=== PATIENT | male | born 1950 | race Caucasian/White ===

== ENCOUNTER → 2017-02-26 | Outpatient (CLI) | payer OTHER ==
--- NOTE | 2017-02-26 11:50 | DIAGNOSTIC IMAGING REPORT ---
HEAD CT NONCONTRAST CT DOSE: 614.27 mGy.cm HISTORY: R29.6 Multiple falls [id number] TECHNIQUE: Multiaxial CT images of the head were performed without the use of intravenous contrast. Automated exposure control was utilized for this study. A dose lowering technique was utilized adhering to the principles of ALARA. Comparison: None. Findings: The paranasal sinuses and mastoid air cells are clear. The calvarium and skull base are intact. The ventricles and sulci are within normal limits. There is no mass, hematoma, midline shift, or acute infarct. Impression: No acute intracranial abnormality. Electronically signed by: Prince Golden M.D. 02/26/2017 11:49 AM Dictated Date/Time: 02/26/2017 11:39 AM
== END | disposition home or self-care (01) ==
LOC: C.CTS 11:28
PROVIDERS: ATTEND Psychiatry & Neurology Neurology
DX: R29.6 Repeated falls (principal)

== ENCOUNTER 2017-03-19 05:27 | Inpatient (IN) | payer OTHER ==
[2017-03-04 14:42] VITALS: BMI 25.0
--- NOTE | 2017-03-04 15:13 | PAT Medication Instructions ---
Service Date Mar 04, 2017. Current Home Medication List Aspirin (Aspirin Ec), 81 MG PO QAM Cholecalciferol (Vitamin D3), 5,000 TAB PO QAM Glucosamine Sulfate (Glucosamine), 1,000 MG PO Memantine (Namenda), 28 MG PO QAM Multivitamin (Multivitamin), 1 TAB PO QPM Naproxen (Aleve), 220 MG PO PRN Ocuvite Preservision (Ocuvite Preservision), 1 TAB PO BID [Vitamin B12], 1 TAB PO QAM Medication Instructions For Your Scheduled Surgery - Check with surgeon for instructions: Naproxen (Aleve), 220 MG PO PRN Aspirin (Aspirin Ec), 81 MG PO QAM - Hold the following medications 2 weeks prior to surgery: Glucosamine Sulfate (Glucosamine), 1,000 MG PO - Hold the following medications the morning of surgery: Cholecalciferol (Vitamin D3), 5,000 TAB PO QAM Multivitamin (Multivitamin), 1 TAB PO QPM Ocuvite Preservision (Ocuvite Preservision), 1 TAB PO BID [Vitamin B12], 1 TAB PO QAM - Take the following medications the morning of surgery with a sip of water: Memantine (Namenda), 28 MG PO QAM If you have any questions please call us at [phone] or [phone] or [phone]
[2017-03-04 15:58] LABS: BASO % 0.3 %; BASO ABS # 0.02 K/uL (0-0.2); COMPLETE YES; EOS % 2.4 %; HEMATOCRIT 41.9 % (42-52); IG% 0.3 %; LYMPH % 23.9 %; LYMPH ABS # 1.62 K/uL (1.2-3.4); MEAN CELL VOLUME 88.8 fL (80-100); MEAN CORPUSCULAR HEMOGLOBIN 31.1 pg (25-34); MEAN CORPUSCULAR HGB CONC 35.1 g/dl (32-36); MEAN PLATELET VOLUME 8.7 fL (7.4-10.4); MONO % 8.7 %; NEUT % 64.4 %; PLATELET COUNT 281 K/uL (130-400); RED BLOOD COUNT 4.72 M/uL (4.7-6.1); WHITE BLOOD COUNT 6.78 K/uL (4.8-10.8)
--- NOTE | 2017-03-04 16:06 | DIAGNOSTIC IMAGING REPORT ---
CHEST 2 VIEWS ROUTINE CLINICAL HISTORY: Preoperative chest COMPARISON STUDY: No previous studies for comparison. FINDINGS: The cardiac and mediastinal contours are normal. There is no evidence of focal pulmonary consolidation. There is no evidence of failure. No pleural effusions are visualized.[ IMPRESSION: No active disease in the chest. Electronically signed by: Franck Porras M.D. 03/04/2017 4:05 PM Dictated Date/Time: 03/04/2017 4:04 PM
[2017-03-04 16:17] LABS: MANUAL MICROSCOPIC REQUIRED? NO; URINE APPEARANCE CLEAR (CLEAR); URINE BILIRUBIN NEG (NEG); URINE COLOR YELLOW; URINE NITRITE NEG (NEG); URINE PH 6.5 (4.5-7.5); UROBILINOGEN NEG (NEG)
[2017-03-04 16:18] LABS: INR 1.1 (0.9-1.1); PARTIAL THROMBOPLASTIN RATIO 1.2; PROTHROMBIN TIME (PATIENT) 11.6 SECONDS (9.0-12.0)
[2017-03-04 16:35] LABS: REVIEW REQ? NO
[2017-03-04 16:36] LABS: CREATININE 0.94 mg/dl (0.60-1.40)
[2017-03-04 16:37] LABS: BUN/CREATININE RATIO 14.8 (10-20); POTASSIUM 3.9 mmol/L (3.5-5.1)
[2017-03-05 05:46] LABS: ESTIMATED AVERAGE GLUCOSE 105 mg/dl; HA1C FLAG Normal (Normal)
--- NOTE | 2017-03-05 16:31 | HISTORY & PHYSICAL EXAMINATION ---
DATE OF ADMISSION: 03/19/2017 CHIEF COMPLAINT: Right knee pain. HISTORY OF PRESENT ILLNESS: Mr. Anderson is a 66-year-old male with a 1-year history of right knee pain. He rates his pain at 6/10. He has pain with his daily activities. He has limited standing and walking tolerance. Pain is worse with weightbearing. The patient has had injections, NSAIDs, and knee brace in the past without relief. He also has previous history of right knee meniscectomy and physical therapy. He has failed conservative treatment and is scheduled for right knee replacement. PAST MEDICAL HISTORY: History of prostate cancer and dementia. He denies heart disease, diabetes or DVT. PAST SURGICAL HISTORY: Right knee meniscectomy and prostatectomy. SOCIAL HISTORY: The patient drinks 6 drinks per week. He denies tobacco use. He lives in a 2-story home. He is and retired. FAMILY HISTORY: Negative for DVT. MEDICATIONS: Ocuvite 1 tablet daily, glucosamine 500 mg, vitamin D3 at 5000 units, vitamin B12 at 1000 mcg, Namenda 10 mg 2 times daily, Centrum Silver 400 mcg, aspirin 81 mg daily, and Aleve p.r.n. ALLERGIES: None. REVIEW OF SYSTEMS: See HPI. Ten other systems reviewed, all negative. PHYSICAL EXAMINATION: VITAL SIGNS: Height 5 feet 10 inches. Weight 165 pounds. GENERAL: This is a well-developed and well-nourished male, who is alert and oriented x3. Mood and affect are appropriate. HEENT: Normocephalic and atraumatic. Mucous membranes are moist and intact. NECK: Supple without lymphadenopathy. HEART: Regular rate and rhythm without murmurs, rubs or gallops. LUNGS: Clear to auscultation without wheezes or rhonchi. ABDOMEN: Soft and nontender. Bowel sounds are equal and active. EXTREMITIES: No ecchymosis, redness or warmth. He has a varus deformity. He has scar medially. Range of motion is from 0-120 degrees with +1 laxity. He has mild effusion. He has no distal edema. He is neurovascularly intact with +5/5 strength. X-RAY EXAMINATION: AP and lateral views show joint space narrowing and osteophyte formation. IMPRESSION: Degenerative joint disease, right knee. PLAN: The patient will be admitted for a right total knee arthroplasty. We will plan on aspirin 325 mg b.i.d. for DVT prophylaxis. He will have [facility] for home physical therapy upon discharge.
[2017-03-19] VITALS (9 sets, daily range): BP systolic 92–149; BP diastolic 52–91; PULSE 70–84; TEMP 36.5–36.8; O2SAT 94–98; Ht 177.8 cm; Wt 25.5 kg
[~2017-03-19] VITALS: Ht 177.8 cm; Wt 25.5 kg
[~2017-03-19 05:27] MED LIST: ASPI81TA28 PO; CHOL1000 PO; GLUC10007 PO; MULT-190 PO; MULT-506 PO; NAPR1TAB9 PO; NMN10 PO; VITAMIN B12 PO
[2017-03-19] MEDS ORDERED: ACETAMINOPHEN 500 MG TAB PO SCH (06:00)
[2017-03-19] MEDS ORDERED: LACTATED RINGER'S 1000ML 1,000 ML IV SCH (06:00)
[2017-03-19] MEDS ORDERED: CeleBREX 200 MG CAP PO SCH (06:00)
[2017-03-19] MEDS ORDERED: ROPIVACAINE 5MG/ML 30 ML 150 MG, BUPIVACAINE 0.5% MPF INJ 30 ML, EpINEphrine HCL INJ 0.... INFIL SCH ×8 (06:00)
[2017-03-19] MEDS ORDERED: FAMOTIDINE 20 MG TAB PO SCH (06:00)
[2017-03-19] MEDS ORDERED: DEXAMETHASONE 4 MG TAB PO SCH (06:00)
[2017-03-19] MEDS ORDERED: CEFAZOLIN 2000MG IV PUSH 10 ML IV SCH (06:00)
[2017-03-19] MEDS ORDERED: GABAPENTIN 300 MG CAP PO SCH (06:00)
[2017-03-19] MEDS ORDERED: LACTATED RINGER'S 1000ML IV SCH (06:00)
[2017-03-19] MEDS ORDERED: LACTATED RINGER'S 1000ML 500 ML IV ONE (06:00)
[2017-03-19] MEDS ORDERED: METOCLOPRAMIDE HCL 10 MG TAB PO SCH (06:00)
[2017-03-19] MEDS ORDERED: BUPIVACAINE 0.25% 30 ML VIAL ONE (06:35)
[2017-03-19] MEDS ORDERED: DEXAMETHASONE SOD INJ 4 MG/ML VIAL ONE (06:35)
[2017-03-19] MEDS ORDERED: EpINEphrine INJ 1MG/ML AMP 1 MG/ML AMP ONE (06:35)
[2017-03-19] MEDS ORDERED: BUPIVACAINE 0.5 % 5 MG/1 ML PF 10ML VIAL ONE (06:35)
[2017-03-19] MEDS: TRANEXAMIC ACID INJ 1,000 MG in SYRINGE 0 ML IV SCH ×2 (06:45→13:21)
[2017-03-19] MEDS ORDERED: FENTANYL CITRATE INJ 50 MCG/1 ML 2 ML VIAL ONE (06:51)
[2017-03-19] MEDS ORDERED: MIDAZOLAM HCL 1 MG/ML 2ML VIAL ONE (06:51)
--- NOTE | 2017-03-19 06:52 | History & Physical Bridge Note ---
H&P Re-Evaluation Bridge Note: I have examined the patient, reviewed the History & Physical and in the interval since the performance of the History & Physical I have noted the following changes of clinical significance: No changes noted
[2017-03-19] MEDS ORDERED: ORTHO JOINT ANESTHETIC ONE (06:53)
[2017-03-19] MEDS ORDERED: POVIDONE-IODINE OP SOLN 30 ML BTL ONE (06:54)
[2017-03-19] MEDS ORDERED: BACITRACIN 50000 UNIT VIAL ONE (06:54)
[2017-03-19] MEDS ORDERED: ATROPINE SULFATE 0.1 MG/ML 5ML SYR IV PRN (08:00)
[2017-03-19] MEDS ORDERED: FENTANYL CITRATE INJ 50 MCG/1 ML 2 ML VIAL IV PRN (08:00)
[2017-03-19] MEDS ORDERED: EpHEDrine SULFATE INJ 50 MG/ML AMP IV PRN (08:00)
[2017-03-19] MEDS ORDERED: ONDANSETRON INJ 2 MG/ML 2 ML VIAL IV PRN ×2 (08:00→10:00)
[2017-03-19] MEDS ORDERED: PROPOFOL IV EMULSION 10 MG/ML 20 ML VIAL IV ONE (09:11)
[2017-03-19] MEDS ORDERED: GLYCOPYRROLATE INJ 0.2 MG/ML VIAL ONE (09:11)
[2017-03-19] MEDS ORDERED: MoRPHine SULFATE 4 MG/ML 1 ML CARP\\VIAL IV PRN (10:00)
[2017-03-19] MEDS ORDERED: OXYCODONE HCL IR 5 MG TAB (IMMEDIATE RELEASE) PO PRN (10:00)
--- NOTE | 2017-03-19 10:04 | [facility] Operative Report ---
Operative Report Operative Date Mar 19, 2017. Pre-Operative Diagnosis Degenerative joint disease, right knee Post-Operative Diagnosis Same as preop Procedure(s) Performed Right total knee arthroplasty Surgeon Dr. Harper Sanitation Engineer Surgeon(s) Pepe Dallas PA-C Estimated Blood Loss 25 cc Findings see dictated op note Specimens A: right knee bone and tissue Drains none Anesthesia spinal Complication(s) None Disposition Recovery Room / PACU Indications A 66-year-old male presents with long history of right knee severe tricompartmental DJD which is failed outpatient conservative treatments including NSAIDs, bracing, cortisone injections home walking/exercise program. His symptoms have progressed to the point where it has been difficult for him to perform normal activities of daily living. I have indicated the patient for a right total knee arthroplasty, the risks and benefits and complications of the procedure include but are not limited to infection bleeding damage to bone nerves vessels surrounding soft tissue, blood clots loss of function leg length discrepancy dislocation failure of the components need for additional surgery and . The patient wished to proceed with surgery at this time and informed consent was obtained. Appropriate clearances were obtained. Description of Procedure Following induction of spinal anesthesia, a tourniquet was applied to the proximal aspect of the thigh and the patient's right leg was prepped and draped in the usual sterile manner. A timeout was performed and site rabia verified. Limb was exsanguinated with an esmarch bandage and tourniquet was inflated to 300 mmHg. A longitudinal midline incision was made over the anterior knee. Subcutaneous tissue was sharply dissected down to fascia. Electrocautery was used for hemostasis. Next a parapatellar arthrotomy was performed. Patella was everted and the knee was flexed. A lambert retractor was used to expose the synovium above on the anterior aspect of the femur and removed down to bone. Next, the anterior fat pad was removed to aid in visualization. The medial face of the tibia was cleared of soft tissue first with a bovie and a asmayoa elevator. This tissue was retracted posteriorly using a blunt hohmann. Next the extramedullary tibial cutting guide was placed to the anterior aspect of the tibia. The tibial resection level was set taking 2mm from the defective tibial condyle. The medial and lateral collateral ligament were protected with that homans. The tibia guide was removed and proximal tibial bone fragment removed utilizing straight osteotome, electrocautery and higinio. Next, the distal femur intramedullary canal was accessed utilizing the step drill. The intramedullary distal femur cutting guide was placed into the canal and pinned into place. The distal femur was cut on the +2 setting. Next the cutting guide was removed and the femur was sized. Care was taken to ensure appropriate participant administrator all rotation and 3 degree holes were drilled. A size 10 4-in-1 cutting block was placed on the distal end of the femur and secured into place with two short headed screws. To bent homans were placed to protect the medial and lateral collateral ligaments. The oscillating saw was used to cut anterior, posterior, anterior chamfer and posterior chamfer. The four and one cutting block was removed and bone fragments excised. Laminar phlebotomy lab assistant was placed laterally and the ACL and PCL were removed followed by the medial meniscus and posterior medial osteophytes. Aquamantys was utilized for any posterior medial bleeders and Orthomix injected into the posterior medial capsule. A laminar phlebotomy lab assistant was then placed in the medial compartment and the lateral meniscus and posterior osteophytes were removed. Aquamantys was utilized for any posterior lateral bleeders and Orthomix injected into the posterior lateral capsule. Next, drop quinn and spacer block were placed with the leg in flexion and extension to assess alignment and flexion/extension gaps. Next the proximal tibia was assessed and two bent Homans were placed medial and lateral to aid in visualization. The appropriate tibia size and rotation was selected and a size G tibial plate was pinned into place with appropriate rotation. Preparation of the tibia was completed utilizing the matching tibial drill and broach. I then turned my attention back to the distal femur in a trial femoral component was impacted into place. Appropriate femoral width was assessed and selected. Next the femur PS box cut guide was placed and cut made with the reciprocal saw and the PS box provisional placed. A trial size 10 mm tibia articular tray was placed and varus-valgus balance assessed in 0 degrees of extension and 30, 60 and 90 degrees of flexion. A final tibial articular surface size 10 mm was chosen. Assess was gained to the patella and caliper utilized to measure width. The patella reamer was utilized and remaining bone removed with oscillating saw. A size 38 mm patella button was selected and the patella pegs drilled. Trial patella button was placed and tracking was assessed. The knee was found to be well balanced, well aligned with excellent patella tracking. The trials were removed and final components were obtained and assembled. The knee was irrigated copiously with sterile saline solution mixed with bacitracin. Access to the proximal tibia was once again obtained utilizing to the belkys and the proximal tibia and distal femur were dried with lap sponges. The final components were cemented into place and all excess cement was removed. A trial tibial articular surface was placed while cemented hardened. Knee stability was once again assessed and the final component inserted. The knee was injected with the remaining Orthomix solution and irrigated once more with sterile saline solution mixed with bacitracin. The capsulotomy was closed with #1 Vicryl followed by subcutaneous closure with 2-0 Vicryl suture and a 3- 0 V-lock suture. Skin closure was performed using Prineo dressing followed by Sim, 4 x 4s and mathieu wrap. The patient tolerated the procedure well and was taken to the PACU in stable condition. Due to the complex nature of the procedure, the entire surgery was performed with the operational assistance of Antonia Dallas PA-C. The integration assistant, under direct supervision, was involved in the actual performance of all aspects of the surgical procedure including hemostasis, tissue retraction and incision, instrument management, patient positioning, and wound closure. I attest to the content of the Intraoperative Record and any orders documented therein. Any exceptions are noted below. I attest to the content of the Intraoperative Record and any orders documented therein. Any exceptions are noted below.
--- NOTE | 2017-03-19 10:30 | DIAGNOSTIC IMAGING REPORT ---
TWO VIEWS RIGHT KNEE CLINICAL HISTORY: Postoperative examination. FINDINGS: AP and crosstable lateral portable views of the right knee are obtained. A right knee arthroplasty is in near anatomic alignment. There has been undersurface remodeling of the patella. No acute fracture is seen. There are expected postoperative changes around the knee including a surgical drain, soft tissue edema, and subcutaneous gas. IMPRESSION: Expected postoperative changes status post right knee arthroplasty. No acute fracture is seen. Electronically signed by: Peter Velazquez M.D. 03/19/2017 10:29 AM Dictated Date/Time: 03/19/2017 10:28 AM
--- NOTE | 2017-03-19 10:55 | Anesthesiology Progress Note ---
Anesthesia Post Op Note Date & Time Mar 19, 2017 at 10:54 Vital Signs Pain Intensity: 0 Vital Signs Past 12 Hours Date Time Temp Pulse Resp B/P (MAP) Pulse Ox O2 Delivery O2 Flow Rate FiO2 03/19/17 10:50 37 71 16 110/77 97 Nasal Cannula 2 03/19/17 10:40 73 16 115/68 98 Nasal Cannula 2 03/19/17 10:30 74 16 115/70 97 Nasal Cannula 2 03/19/17 10:20 80 19 114/69 97 Nasal Cannula 2 03/19/17 10:10 78 16 103/60 95 Oxymask 10 03/19/17 10:00 36.8 89 16 107/59 96 Oxymask 10 03/19/17 05:49 36.6 84 18 149/91 98 Room Air Notes Mental Status: alert / awake / arousable, participated in evaluation Pt Amnestic to Procedure: Yes Nausea / Vomiting: adequately controlled Pain: adequately controlled Airway Patency, RR, SpO2: stable & adequate BP & HR: stable & adequate Hydration State: stable & adequate Anesthetic Complications: no major complications apparent
[2017-03-19] MEDS: ACETAMINOPHEN 500 MG TAB PO SCH ×2 (14:12→20:58)
[2017-03-19] MEDS: SODIUM CHLORIDE 0.9% 1000ML 1,000 ML IV SCH ×2 (14:12→22:37)
[2017-03-19] MEDS ORDERED: INFLUENZA ADMINISTRATION CHARGE ONE (15:15)
[2017-03-19] MEDS ORDERED: INFLUENZA VIRUS QUAD VACCINE 0.5 ML SYR IM. ONE (15:15)
[2017-03-19] MEDS: CEFAZOLIN IV 2,000 MG in SYRINGE 0 ML IV SCH (15:41)
[2017-03-19] MEDS ORDERED: CEFAZOLIN IV 2,000 MG in DEXTROSE 5% 50ML 50 ML IV SCH (16:00)
--- NOTE | 2017-03-19 16:41 | Orthopedic Progress Note ---
Orthopedic Progress Note Date of Service Mar 19, 2017. Subjective Additional Notes: Post op progress note Patient seen at bedside, s/p Right TKA, comfortable, sensation returning to b/l lower extremities, pain well controlled, no acute issues. Does complain of numbness to right hand, 1-3 digits. Denies N/V/CP/SOB Objective NAD, AOx3 RUE NVSI +M/R/U/AIN/PIN motor, sensory intact to light touch grossly, with the exception of the 1,2,3 digits to sensory. Compartments soft NT, 5/5 gripe strength. CR< 2 seconds, Full painless ROM shoulder, elbow, wrist, fingers RLE NVSI +EHL/FHL/TA/GS SILT grossly, CR< 2 seconds, +2 DP pulse, dressing cdi, compartments soft NT, SCDs in place Date Time Temp Pulse Resp B/P (MAP) Pulse Ox O2 Delivery O2 Flow Rate FiO2 03/19/17 15:08 36.8 73 16 92/52 (65) 96 Nasal Cannula 2.0 03/19/17 14:10 78 16 97/58 (71) 98 03/19/17 13:10 81 17 109/66 (80) 98 03/19/17 12:10 73 16 104/66 (79) 98 Nasal Cannula 2.0 03/19/17 11:40 72 16 105/61 (76) 98 Nasal Cannula 2.0 03/19/17 11:10 94 Nasal Cannula 2.0 03/19/17 11:10 36.8 77 16 109/65 (80) 94 Nasal Cannula 2.0 03/19/17 11:10 94 Nasal Cannula 2.0 03/19/17 10:50 37 71 16 110/77 97 Nasal Cannula 2 03/19/17 10:40 73 16 115/68 98 Nasal Cannula 2 03/19/17 10:30 74 16 115/70 97 Nasal Cannula 2 03/19/17 10:20 80 19 114/69 97 Nasal Cannula 2 03/19/17 10:10 78 16 103/60 95 Oxymask 10 03/19/17 10:00 36.8 89 16 107/59 96 Oxymask 10 03/19/17 05:49 36.6 84 18 149/91 98 Room Air Assessment & Plan Assessment: s/p R TKA RUE median nerve paraesthesia Plan: -Ancef x 24 -ASA/SCDs for DVT PPX -Pain controlled -IV fluids x 24 -PO XR - well aligned, well fixed TKA, no fracture/dislocation. -RUE median nerve paraesthesia likely positional, continue to monitor, NV checks. -WBAT RLE -PT/OT -Am labs
[2017-03-19] MEDS: ASPIRIN 325 MG ECTAB PO SCH (20:57)
[2017-03-19] MEDS: DOCUSATE SODIUM 100 MG CAP PO SCH (20:58)
[2017-03-19] MEDS ORDERED: SENNA 8.6 MG TAB PO SCH (21:00)
[2017-03-19] MEDS ORDERED: MULTIVITAMIN TAB PO SCH (21:00)
[2017-03-20] MEDS: CEFAZOLIN IV 2,000 MG in SYRINGE 0 ML IV SCH (00:31)
[2017-03-20 03:09] VITALS: BP 102/58; PULSE 70; TEMP 36.7; O2SAT 97
[2017-03-20] MEDS: ACETAMINOPHEN 500 MG TAB PO SCH ×2 (06:08→14:14)
[2017-03-20 07:20] LABS: HEMATOCRIT 36.7 % (42-52); MEAN CELL VOLUME 90.2 fL (80-100); MEAN CORPUSCULAR HEMOGLOBIN 30.7 pg (25-34); MEAN CORPUSCULAR HGB CONC 34.1 g/dl (32-36); PLATELET COUNT 306 K/uL (130-400); RED BLOOD COUNT 4.07 M/uL (4.7-6.1); WHITE BLOOD COUNT 19.47 K/uL (4.8-10.8)
[2017-03-20 07:51] VITALS: BP 122/70; PULSE 64; TEMP 36.4; O2SAT 96
[2017-03-20 07:52] LABS: BUN/CREATININE RATIO 21.3 (10-20); CALCIUM 8.2 mg/dl (8.5-10.1); CREATININE 1.12 mg/dl (0.60-1.40); POTASSIUM 3.7 mmol/L (3.5-5.1)
--- NOTE | 2017-03-20 08:04 | Orthopedic Progress Note ---
Orthopedic Progress Note Date of Service Mar 20, 2017. Subjective Post OP Day: 1 Reports: feeling well, Denies: chest pain, SOB, nausea / vomiting, light headedness, calf pain Additional Notes: Having some mild pain in the back of the knee. No other complaints. Objective calves soft nontender, N/V intact, dressing C/D/I, A&O x3, toes mobile Tingling in fingers resolving Date Time Temp Pulse Resp B/P (MAP) Pulse Ox O2 Delivery O2 Flow Rate FiO2 03/20/17 07:51 36.4 64 18 122/70 (87) 96 Room Air 03/20/17 03:09 36.7 70 17 102/58 (73) 97 Room Air 03/20/17 00:30 Room Air 03/19/17 22:54 36.5 70 16 102/53 (69) 94 Room Air 03/19/17 19:26 36.5 77 18 100/60 (73) 94 Room Air 03/19/17 15:25 Room Air 03/19/17 15:08 36.8 73 16 92/52 (65) 96 Nasal Cannula 2.0 03/19/17 14:10 78 16 97/58 (71) 98 03/19/17 13:10 81 17 109/66 (80) 98 03/19/17 12:10 73 16 104/66 (79) 98 Nasal Cannula 2.0 03/19/17 11:40 72 16 105/61 (76) 98 Nasal Cannula 2.0 03/19/17 11:10 94 Nasal Cannula 2.0 03/19/17 11:10 36.8 77 16 109/65 (80) 94 Nasal Cannula 2.0 03/19/17 11:10 94 Nasal Cannula 2.0 03/19/17 10:50 37 71 16 110/77 97 Nasal Cannula 2 03/19/17 10:40 73 16 115/68 98 Nasal Cannula 2 03/19/17 10:30 74 16 115/70 97 Nasal Cannula 2 03/19/17 10:20 80 19 114/69 97 Nasal Cannula 2 03/19/17 10:10 78 16 103/60 95 Oxymask 10 03/19/17 10:00 36.8 89 16 107/59 96 Oxymask 10 Laboratory Results 24 Hours: Test 03/20/17 06:30 Hematocrit 36.7 % Hemoglobin 12.5 g/dL Assessment & Plan Assessment: POD 1 s/p R TKA RUE median nerve paraesthesia Leukocytosis Plan: - Leukocytosis likely due to surgical stress/preop steroids -ASA/SCDs for DVT PPX -RUE median nerve paraesthesia likely positional, continue to monitor, NV checks. -WBAT RLE -PT/OT Inhouse Planning Pain Management: Morphine, PO Tylenol, Oxy IR DVT Prophylaxis: TEDs, SCDs, ASA Discharge Planning Discharge Planning: home with home health
[2017-03-20] MEDS: ASPIRIN 325 MG ECTAB PO SCH (08:44)
[2017-03-20] MEDS: DOCUSATE SODIUM 100 MG CAP PO SCH (08:44)
[2017-03-20 08:50] VITALS: O2SAT 96
[2017-03-20] MEDS ORDERED: MEMANTINE 10 MG TAB PO SCH (09:00)
[2017-03-20 09:17] VITALS: BP 112/63
[2017-03-20] MEDS: SODIUM CHLORIDE 0.9% 1000ML 1,000 ML IV SCH (09:54)
[2017-03-20] MEDS ORDERED: SENN1TAB80 PO (10:29)
[2017-03-20] MEDS ORDERED: RXC5 PO (10:29)
[2017-03-20] MEDS ORDERED: ACET-24 PO (10:29)
[2017-03-20] MEDS ORDERED: ASPEC325 PO (10:29)
[2017-03-20] MEDS ORDERED: ONDA8TAB6 PO (10:29)
--- NOTE | 2017-03-20 10:34 | Discharge Instructions ---
Discharge Instructions Date of Service Mar 20, 2017. Admission Reason for Admission: Right Knee Osteoarthritis Discharge Discharge Diagnosis / Problem: S/P R TKA Discharge Goals Goal(s): Decrease discomfort, Improve function, Increase independence Activity Recommendations Activity Limitations: per Instructions/Follow-up section . Instructions / Follow-Up Instructions / Follow-Up ACTIVITY RECOMMENDATIONS: SELF CARE INSTRUCTIONS AFTER TOTAL KNEE REPLACEMENT A. You may need to continue a physical therapy program after discharge from the hospital. There are several options available to you. Your doctor will assist you in selecting the best one for you. 1. An out-patient facility 2 to 3 times a week for therapy or home therapy. 2. Continue working on all exercises taught to you in the hospital. Your goals should be to increase bending of your knee to 90 degrees and beyond and to fully straighten your knee. B. You may progress at your own pace from walking with a walker or crutches to a cane; then to no assistive devices. C. Make walking a part of your daily routine. Be up as much as comfortable with rest periods throughout the day. Rest with leg elevation is very important. Use the ice wrap frequently for the first 3-4 weeks. D. There are no restrictions on activities. You may ride in a car, shop, participate in copyholder and all social activities. E. Wear the long elastic stockings (HENRRY hose) 20 hours a day for 2 weeks after surgery. They can be removed several times a day for laundering and for a bath. F. You may shower, no tub baths until cleared by your doctor. SPECIAL CARE INSTRUCTIONS: VERY IMPORTANT TO READ AND REVIEW A. There are a few signs you need to watch for after you are home. Call [facility] if you notice any of the followin. Increased severe knee pain. Some pain is expected especially when you exercise. 2. Increased swelling in your leg or knee; pain or swelling of the calf muscle in either lower leg. 3. Any fluid drainage from the incision. 4. Shortness of breath or chest pain. B. Please call [facility] at if you have any concerns or questions about your operation or recovery. The doctor or his nurse will return your call promptly. C. You must take antibiotics before dental work, bladder, bowel or other surgery. Your doctor will provide you with a permanent care to carry describing this precaution. IMPORTANT: * REMEMBER TO TAKE ASPIRIN, 325 MG, TWICE DAILY FOR 4 WEEKS UNLESS OTHERWISE DIRECTED. THIS IS YOUR BLOOD THINNER. * HIGH RISK PATIENTS MAY BE PRESCRIBED A STRONGER BLOOD THINNER. THIS WILL BE PROVIDED AT DISCHARGE. * CALL IF INCREASED PAIN, REDNESS, DRAINAGE OR FEVER GREATER THAT 101. * WEAR HENRRY HOSE 20 HOURS PER DAY FOR 2 WEEKS. * YOUR DRESSING IS A DERMABOND PRINEO DRESSING, DO NOT REMOVE. THIS WILL REMAIN ON YOUR INCISION AND SLOWLY FALL OFF OVERTIME. IF INCISION IS LEAKING THROUGH DRESSING, CALL THE OFFICE . FOLLOW UP VISIT: If appointment is not already scheduled: Please call [facility] to make a follow-up appointment for 2 weeks after your surgery at . Current Hospital Diet Patient's current hospital diet: Regular Diet Discharge Diet Recommended Diet: Regular Diet Procedures Procedures Performed: Right total knee arthroplasty Pending Studies Studies pending at discharge: no Laboratory Results Hemoglobin A1c Test 03/04/17 15:20 Range/Units Estimated Average Glucose 105 mg/dl Hemoglobin A1c 5.3 4.5-5.6 % Medical Emergencies . Who to Call and When: Medical Emergencies: If at any time you feel your situation is an emergency, please call 911 immediately. . Non-Emergent Contact Non-Emergency issues call your: Surgeon . "Provider Documentation" section prepared by Marcin Harper. . VTE Core Measure Inpt VTE Proph given/why not?: Other Anticoagulation, T.E.D. Stockings, SCD's [place] Drug Monitoring Program Search Results: patient reviewed within database, no issues identified
[2017-03-20 11:38] VITALS: BP 120/70; PULSE 73; TEMP 36.4; O2SAT 94
[2017-03-20 14:19] VITALS: BP 120/70; PULSE 73; TEMP 36.4; O2SAT 94
--- NOTE | 2017-03-20 14:19 | Anesthesiology Progress Note ---
Anesthesia Post Op Note Date & Time Mar 20, 2017 at 14:18 Vital Signs Vital Signs Past 12 Hours Date Time Temp Pulse Resp B/P (MAP) Pulse Ox O2 Delivery O2 Flow Rate FiO2 03/20/17 11:38 36.4 73 19 120/70 (87) 94 Room Air 03/20/17 08:50 96 Room Air 03/20/17 07:51 36.4 64 18 122/70 (87) 96 Room Air 03/20/17 07:40 Room Air 03/20/17 03:09 36.7 70 17 102/58 (73) 97 Room Air Notes Mental Status: alert / awake / arousable, participated in evaluation Pt Amnestic to Procedure: Yes Nausea / Vomiting: adequately controlled Pain: adequately controlled Airway Patency, RR, SpO2: stable & adequate BP & HR: stable & adequate Hydration State: stable & adequate Neuraxial Anesthesia: was administered, sensory block resolved Anesthetic Complications: no major complications apparent
== END 2017-03-20 15:54 | disposition home health service (06) | DRG 470 ==
LOC: C.ACU 05:27 → C.3E 09:59 → ENRESERV 10:37
PROVIDERS: ADMIT Orthopaedic Surgery; ATTEND Orthopaedic Surgery
PROC: 0SRC0J9 Replacement of Right Knee Joint with Synthetic Substitute, Cemented, Open Approach (ICD-10-PCS; principal; 2017-03-19 07:15)
DX: M17.11 Unilateral primary osteoarthritis, right knee (principal); Z85.46 Personal history of malignant neoplasm of prostate; F03.90 Unspecified dementia, unspecified severity, without behavioral disturbance, psychotic disturbance, mood disturbance, and anxiety; Z72.89 Other problems related to lifestyle; Z79.82 Long term (current) use of aspirin

== ENCOUNTER → 2017-11-04 | Outpatient (CLI) | payer OTHER ==
[~2017-11-04] MED LIST changes: +ACET-24 PO; +ASPEC325 PO; -ASPI81TA28 PO; -GLUC10007 PO; -NAPR1TAB9 PO; +RXC5 PO; +SENN1TAB80 PO
--- NOTE | 2017-11-04 16:47 | DIAGNOSTIC IMAGING REPORT ---
HEAD CT NONCONTRAST CT DOSE: 638.56 mGycm HISTORY: R29.6 Multiple [id number] Head [id number] Confusion TECHNIQUE: Multiaxial CT images of the head were performed without the use of intravenous contrast. Automated exposure control was utilized for this study. A dose lowering technique was utilized adhering to the principles of ALARA. Comparison: Head CT 02/26/2017. Findings: The paranasal sinuses and mastoid air cells are clear. The calvarium and skull base are intact. The ventricles and sulci are within normal limits. There is no mass, hematoma, midline shift, or acute infarct. Impression: No acute intracranial abnormality. Electronically signed by: Prince Golden M.D. 11/04/2017 4:46 PM Dictated Date/Time: 11/04/2017 4:37 PM
== END | disposition home or self-care (01) ==
LOC: C.CTS 16:26
PROVIDERS: ATTEND Psychiatry & Neurology Neurology
DX: R41.0 Disorientation, unspecified (principal); S09.90XA Unspecified injury of head, initial encounter; X58.XXXA Exposure to other specified factors, initial encounter; R29.6 Repeated falls